=== PATIENT | female | born 2000 | race Caucasian/White ===

== ENCOUNTER 2021-03-04 10:07 | Emergency (ER) | payer BC, SELFPAY ==
[2021-03-04 10:08] VITALS: BP 122/67; PULSE 116; RESP 16; TEMP 37.4; O2SAT 97; BMI 22.6
--- NOTE | 2021-03-04 10:18 | RAD_ITS ---
STUDY: X-RAY CHEST REASON FOR EXAM: Female, 20 years old. Several week history of cough, shortness of breath and low-grade fever. TECHNIQUE: Single AP portable view of the chest. COMPARISON: None. FINDINGS: The lungs are clear and expanded. There is no demonstrated pleural abnormality. Normal size heart. Normal mediastinum and agustin. Normal visualized pulmonary arteries. Normal visualized aortic arch and descending thoracic aorta. Normal visualized thoracic spine. Normal visualized ribs, clavicles, and shoulders. There is no demonstrated abnormality of the visualized soft tissue structures of the upper abdomen. RAD/Chest 1 View IMPRESSION: Normal x-ray examination of the chest. Electronically Signed: Fabricio Saleh MD at 10:38 EST , Service support ,
--- NOTE | 2021-03-04 11:05 | EDS_ITS ---
HPI History of Present Illness Chief Complaint: Cough Narrative Narrative: Patient is a 20-year-old female who states for the past 3 to 4 weeks she has had nasal congestion with mild cough. She states over the past 7 days she feels like her symptoms are worsened. She denies any history of lung pathology and states that there has been no known sick contact. However with her worsening symptoms she presents for evaluation [facility] Medical History no medical history no medical history Home Medications azelastine 2 spray INTRANASAL BID #30 ml 03/04/21 [Rx Last Taken Unknown] benzonatate 200 mg PO TID PRN #30 cap 03/04/21 [Rx Last Taken Unknown] prednisone 40 mg PO DAILY #14 tab 03/04/21 [Rx Last Taken Unknown] Allergy/AdvReac Type Severity Reaction Status Date / Time No Known Allergies Allergy Verified 03/04/21 10:08 Surgical History no surgical history Social History Smoking Status: Never smoker [facility] ED Constitutional Constitutional ED: Denies chills or fever(s) ENT ENT ED: Reports rhinorrhea and sore throat Cardiovascular Cardiovascular: Denies chest pain Respiratory/Chest Respiratory/Chest: Reports cough; Denies dyspnea Gastrointestinal Gastrointestinal: Denies abdominal pain, diarrhea, nausea or vomiting Genitourinary Genitourinary ED: Denies dysuria Musculoskeletal Musculoskeletal: Denies myalgias Integumentary Denies rash Neurologic Neurologic: Denies headache(s) EXAM Physical Exam Const Vital Signs: 03/04/21 10:08 Temperature 99.3 F H Temperature Source Temporal Pulse Rate 116 H Respiratory Rate 16 Blood Pressure 122/67 H Blood Pressure Mean 85 Pulse Ox 97 Oxygen Delivery Method Room Air Positive well nourished and well developed General Appearance ED: well developed HEENT HEENT Narrative: Nasal mucosa is hyperemic and boggy with enlarged inferior nasal turbinates. Posterior pharynx has cobblestoning consistent with sinus drainage but no airway edema or compromise Eyes PERRL and EOMs intact bilaterally Neck supple Neck Narrative: Positive anterior cervical lymphadenopathy noted Resp normal respiratory effort and clear to auscultation bilaterally Cardio regular rate and regular rhythm GI normal to inspection, nondistended, normoactive bowel sounds, non-tender, non- distended and no masses Auscultation: normoactive bowel sounds Palpation: soft Extremity normal to inspection Neuro oriented x3 and CN's II-XII intact bilaterally Sensorium / Orientation: alert Motor Exam: strength 5/5 throughout Psych mental status grossly normal Skin no rashes or lesions noted MDM MDM MDM Narrative Medical decision making narrative: Patient presented to the ER no acute respiratory distress. Her constellation of symptoms is consistent with a viral illness and therefore a Covid swab as well as chest x-ray were ordered. Chest x-ray revealed no acute lung pathology and Covid test was negative. Therefore this indicates patient has similar type of virus but as she is not in respiratory distress does not need further work-up and is safe for discharge Radiography Diagnostic Testing: Clinical Impression(s) from Imaging Studies Chest X-Ray 03/04/21 10:18 IMPRESSION: Normal x-ray examination of the chest. Electronically Signed: Fabricio Saleh MD at 10:38 EST , Service support , Discharge Plan Triage Chief Complaint: Cough ED Provider: Raghu Bird Dx/Rx/DC Orders Clinical Impression: Viral upper respiratory illness Instructions: ED URI, Viral, No Abx (Adult) Prescriptions: New prednisone 20 mg tablet 40 mg PO DAILY Qty: 14 RF: 0 azelastine 137 mcg (0.1 %) aerosol,spray 2 spray intranasal BID Qty: 30 RF: 0 benzonatate 200 mg capsule 200 mg PO TID PRN (Reason: cough) Qty: 30 RF: 0 Primary Care Provider: NOT,DEFINED Referrals: Guevara Tipton MD [STAFF PHYSICIAN] - 1 Week if not improving NOT,DEFINED [Primary Care Provider] - Disposition Disposition: Home, Self Care
[2021-03-04 11:10] VITALS: O2SAT 99
== END 2021-03-04 11:34 | disposition home or self-care (01) ==
LOC: ED 11:23
PROVIDERS: Emergency Provider Emergency Medicine
DX: J06.9 Acute upper respiratory infection, unspecified (principal); Z20.822 Contact with and (suspected) exposure to COVID-19
CPT/HCPCS: 71045; 87426; 99282